=== PATIENT | female | born 1975 | race Two or more races ===

== ENCOUNTER 2020-11-20 08:43 | Outpatient (CLI) | payer OTHER ==
[~2020-11-20 08:43] MED LIST: AMOX TR-K1 TAB.CHE2 PO; CLOBETASOL 0.0515 GM TP; CLOBEX TP; FEXOFENADINE H180 MG PO; KETOCONAZOLE15 GM TP; LAMISIL250 MG PO; MEDROL2 MG PO; MOMETASONE FURO15 GM TP; [UNRECOGNIZED DRUG - OTHER] TP
== END 2020-11-20 08:59 | disposition home or self-care (01) ==
LOC: SONOGRAMA 08:43
PROVIDERS: ATTEND Pathology Anatomic Pathology & Clinical Pathology
DX: D11.0 Benign neoplasm of parotid gland (principal)